=== PATIENT | female | born 1970 | race Caucasian/White ===

== ENCOUNTER 2016-06-28 11:23 | Day surgery (SDC) | payer BC ==
[2016-06-25 08:46] VITALS: BMI 38.7
[~2016-06-28 11:23] MED LIST: SODIUM CHLORIDE 0.9% 1,000 ML IV SCH
[2016-06-28 12:16] LABS: Anion Gap 14 mmol/L; Blood Urea Nitrogen 14 mg/dL (7-17); Calcium 9.1 mg/dL (8.4-10.2); Carbon Dioxide 17 mmol/L (22-30); Chloride 110 mmol/L (98-107); Glucose 97 mg/dL (74-99); Non-African American GFR(MDRD) >60 (>60 ml/min/1.73 sqM); Sodium 141 mmol/L (137-145)
[2016-06-28] MEDS ORDERED: MIDAZOLAM 2 MG/2 ML VIAL ONE ×2 (12:50→13:50)
[2016-06-28] MEDS ORDERED: MIDAZOLAM 2 MG/2 ML VIAL IV ONE (12:52)
[2016-06-28] MEDS ORDERED: PHENYLEPHRINE-0.9% NACL SYG 1 MG/10 ML SYRINGE ONE (13:50)
[2016-06-28] MEDS ORDERED: HEPARIN SODIUM 1,000 UNIT/ML VIAL ONE (13:50)
[2016-06-28] MEDS ORDERED: ISOPROTERENOL 250 MCG/1.25 ML SYR IV ONE (13:50)
[2016-06-28] MEDS ORDERED: fentaNYL (PF) 50 MCG/ML 2 ML AMP ONE (13:50)
[2016-06-28] MEDS ORDERED: PROPOFOL 10 MG/ML 20 ML VIAL IV ONE (13:50)
[2016-06-28] MEDS ORDERED: SUCCINYLCHOLINE CHLORIDE VIAL 200 MG/10 ML VIAL IV ONE (13:50)
[2016-06-28] MEDS ORDERED: ONDANSETRON 4 MG/2 ML VIAL ONE (13:50)
[2016-06-28] MEDS ORDERED: LIDOCAINE 2% INJ 20 MG/ML SQ ONE (15:01)
[2016-06-28] MEDS ORDERED: LACTATED RINGERS 1,000 ML IV ONE ×2 (15:09→17:46)
[2016-06-28] MEDS ORDERED: ACETAMINOPHEN TAB 325 MG TAB PO PRN (17:16)
[2016-06-28] MEDS ORDERED: PANTOPRAZOLE 40 MG TABLET PO PRN (17:17)
--- NOTE | 2016-06-28 18:19 | PCN ---
DATE OF PROCEDURE: 06/28/2016 Marcella Mckay is a 46-year-old female who has recurrent SVT. She has documented long RP tachycardia. She was brought in for a diagnostic EP study and radiofrequency ablation for symptomatic SVT. Patient was brought to the EP lab in a fasting state. Written informed consent was obtained prior to the procedure. The procedure was performed under general anesthesia because with conscious sedation she could not lie still on the table and was moving around a lot. Venous sheaths were then placed in the right and left femoral veins. There were 4 venous sheaths placed. Via these, diagnostic catheters were placed in the right heart: high right atrial catheter, His bundle catheter, RV catheter and coronary sinus catheter. Sinus cycle length 614 ms, ND interval 127 ms, QRS 95 ms, QT 430 ms. AH interval 119 ms. HV interval 31 ms. Sinus node recovery times at 600, 500 and 400 ms were 821, 853 and 860 ms, respectively. Corresponding corrected sinus node recovery times were within normal limits. AV node Wenckebach block 270 ms. Slow pathway was noted at 300 ms. During VA pacing to obtain a VA Wenckebach block, SVT was induced at a cycle length of 320 ms when pacing from the ventricle. The tachycardia cycle length was about 300 ms. During ventricular pacing a retrograde jump was noted. This was a long RP tachycardia, but the post-pacing interval minus tachycardia cycle length was 219 ms. A pseudo-VAAV response was noted with ventricular pacing, and this is consistent with atypical AV yue re-entry. A long sheath was placed and 4 mm-tip RF ablation catheter was placed. Three-D mapping was performed. The His cloud was mapped. The coronary sinus os, both at the floor and the roof, was mapped. RF ablation was performed posterior/inferiorly, but of the coronary sinus OFF. Slow pathway was mapped to the posterior septum but clearly off the coronary sinus os. RF ablation at this site resulted in the appearance of junctional rhythm. A lot of junctional rhythm was obtained and good temperature, good power were noted. Successful slow pathway ablation was performed. Ventricular pacing after RF ablation showed no evidence for AV yue re-entry and at the end no evidence for retrograde jump, either. However, with ventricular pacing, a second tachycardia was noted, and this appeared to be an atrial tachycardia with broad and negative V-shaped P-waves in the inferior leads and an initial negative followed by positive deflection in lead V1. This tachycardia was consistent with coronary sinus tachycardia. RF ablation at the coronary sinus roof resulted in induction of this tachycardia followed by termination. RF ablation was completed and 2 RF lesions were applied here. The tachycardia was rendered non-inducible with ventricular pacing. Isuprel was used and ventricular pacing, atrial pacing, coronary sinus pacing, and ventricular pacing were performed. Extrastimulation was performed from the atrium and from the RV. No SVT was induced. There was no evidence for slow pathway conduction. No evidence for atrial tachycardia. At the end, VA Wenckebach block was 280 ms and ( ) block was 340 ms. Patient tolerated the procedure well without any acute complications. All catheters were removed. Sheaths were removed. The patient was extubated and transferred to Telemetry. RESULT: Diagnostic EP study revealing two SVTs: 1. Atypical AV yue re-entry, status post successful ablation. 2. SVT 2 was in atrial tachycardia originating from the roof of the coronary sinus os. This was a distinct and a different tachycardia. RF ablation at the roof resulted in induction of the tachycardia followed by termination. Patient tolerated the procedure well without acute complications.
--- NOTE | 2016-06-28 18:23 | LTR ---
June 28, 2016 RE: Marcella Mckay Dear [place], I had the pleasure of seeing Marcella Mckay in electrophysiology followup. As you may remember, Marcella had recurrent episodes of SVT and she underwent diagnostic EP study which revealed: 1) AV yue re-entry, atypical; 2) an atrial tachycardia from the roof of the coronary sinus. There were 2 distinct tachycardias, and they were both successfully ablated and rendered non-inducible. Hopefully this takes care of her tachycardias. I plan to discontinue atenolol now and I will watch her blood pressure overnight and see if she needs any further maximization of antihypertensive therapy. Thank you for entrusting me with the care of your patient. Sincerely, CARLOS KOLB MD
[2016-06-28] MEDS ORDERED: HYDROcodone/APAP 5-325MG 1 EACH TAB PO PRN (22:16)
--- NOTE | 2016-06-29 08:20 | P.DS ---
Providers Attending physician: Kyree Holt Primary care physician: [place] Arthur Pertinent Studies: Patient is doing well from a cardiac standpoint. She has no chest discomfort she does have a mild cough and sore throat from general anesthesia no dizziness lightheadedness minimal groin pain no hematoma in the right groin or the left groin Blood pressure 144/60 mmHg, normal heart rates Heart sounds are normal normal S1 normal S2 no murmurs Breath sounds are normal no rhonchi no crackles Abdomen soft nontender No hematoma in the right or left groins Impression Atypical AV yue reentry Status post successful ablation Focal atrial tachycardia from the roof of the coronary sinus os Status post successful ablation Plan Discharge home today after 3 PM if no bleeding problems from the groins Stop atenolol and follow-up with Dr. Naqvi in 1 week Home blood pressure monitoring Discussed with patient and discussed with Dr. Naqvi Plan - Discharge Summary Discharge Medication List Atenolol [Tenormin] 25 mg PO QAM 02/13/15 [History] Norethindrone AC-Eth Estradiol [Junel 1 mg-20 Mcg Tablet] 1 tab PO DAILY [History] Atenolol 12.5 mg PO HS 03/03/15 [History] Ibuprofen [Motrin] 200 - 400 mg PO Q6HR PRN 04/22/16 [History] Omeprazole [PriLOSEC] 20 mg PO DAILY PRN 04/22/16 [History]
[2016-06-29 12:10] VITALS: BP 146/67; PULSE 83; RESP 16; TEMP 98.7
== END 2016-06-29 14:02 | disposition home or self-care (01) ==
LOC: CATHEP 11:23 → 3OBS 16:58 → CATHEP 06-29 14:02
PROVIDERS: ATTEND Internal Medicine Clinical Cardiac Electrophysiology
DX: I47.1 Supraventricular tachycardia (principal); E66.9 Obesity, unspecified; Z68.38 Body mass index [BMI] 38.0-38.9, adult; Z79.3 Long term (current) use of hormonal contraceptives; Z79.899 Other long term (current) drug therapy
CPT/HCPCS: 93623; 93613; 93653; 93655; 80048; 81025; C1894; C1769; C1893; C1732; C1730; J2001; J2250; J0330; J2405; J3010; J1644; J2370; J2704

== ENCOUNTER → 2017-01-10 | Outpatient (CLI) | payer BC ==
--- NOTE | 2017-01-12 09:56 | MM ---
Reason for exam: screening (asymptomatic). Last mammogram was performed 1 year ago. History: Patient had first child at age 32. Family history of breast cancer in paternal grandmother at age 70. Taking hormonal contraceptives for 7 years beginning at age 25. Physical Findings: A clinical breast exam by your physician is recommended on an annual basis and results should be correlated with mammographic findings. MG 3D Screening Mammo W/Cad Bilateral CC and MLO view(s) were taken. Prior study comparison: January 01, 2016, bilateral MG screening mammo w CAD. November 29, 2014, bilateral MG screening mammo w CAD. November 02, 2013, bilateral MG screening mammo w CAD. The breast tissue is heterogeneously dense. This may lower the sensitivity of mammography. Finding: Architectural distortion in seen in the central right breast at posterior depth, may represent overlap but further workup is recommended. ASSESSMENT: Incomplete: need additional imaging evaluation, BI-RAD 0 RECOMMENDATION: Special view mammogram of the right breast. If lesion persists on supplemental views, image directed ultrasound is recommended. [facility] will attempt to contact patient to return for supplemental views and ultrasound if indicated.
== END | disposition home or self-care (01) ==
LOC: RADMAMWWP 16:02
PROVIDERS: ATTEND Obstetrics & Gynecology
DX: Z12.31 Encounter for screening mammogram for malignant neoplasm of breast (principal)
CPT/HCPCS: 77063; G0202

== ENCOUNTER → 2017-01-13 | Outpatient (CLI) | payer BC ==
--- NOTE | 2017-01-13 09:28 | MM ---
Reason for exam: additional evaluation requested from abnormal screening. Last mammogram was performed less than 1 month ago. History: Patient had first child at age 32. Family history of breast cancer in paternal grandmother at age 70. Taking hormonal contraceptives for 7 years beginning at age 25. Physical Findings: Nurse did not find any significant physical abnormalities on exam. MG 3D Work Up W/Cad RT LM and spot compression CC view(s) were taken of the right breast. Prior study comparison: January 10, 2017, bilateral MG 3d screening mammo w/cad. January 01, 2016, bilateral MG screening mammo w CAD. November 29, 2014, bilateral MG screening mammo w CAD. The breast tissue is heterogeneously dense. This may lower the sensitivity of mammography. Distortion posterior depth persists. These results were verbally communicated with the patient and result sheet given to the patient on 01/13/17. ASSESSMENT: Incomplete: need additional imaging evaluation, BI-RAD 0 RECOMMENDATION: Ultrasound of the right breast. (6-12 o'clock)
--- NOTE | 2017-01-13 09:30 | USB ---
Reason for exam: additional evaluation requested from abnormal screening. History: Patient had first child at age 32. Family history of breast cancer in paternal grandmother at age 70. Taking hormonal contraceptives for 7 years beginning at age 25. US Breast Workup Limited RT Right breast ultrasound demonstrates a 1.1 x 1.1 x 0.8cm node at the axilla. No cystic or solid mass. No suspicious abnormalities. These results were verbally communicated with the patient and result sheet given to the patient on 01/13/17. ASSESSMENT: Probably benign, BI-RAD 3 RECOMMENDATION: Follow-up diagnostic mammogram of the right breast in 6 months.
== END | disposition home or self-care (01) ==
LOC: RADMAMWWP 07:38
PROVIDERS: ATTEND Obstetrics & Gynecology
DX: R92.8 Other abnormal and inconclusive findings on diagnostic imaging of breast (principal)
CPT/HCPCS: 76642; G0206; G0279

== ENCOUNTER → 2017-08-16 | Outpatient (CLI) | payer BC ==
--- NOTE | 2017-08-16 09:32 | MM ---
Reason for exam: follow-up at short interval from prior study. Last mammogram was performed 7 months ago. History: Patient had first child at age 32. Family history of breast cancer in paternal grandmother at age 70. Taking hormonal contraceptives beginning at age 25. Physical Findings: Nurse did not find any significant physical abnormalities on exam. MG Diagnostic Mammo RT w CAD CC and MLO view(s) were taken of the right breast. Prior study comparison: January 13, 2017, right breast MG 3d work up w/cad RT. January 13, 2017, right breast US breast workup limited RT. January 10, 2017, bilateral MG 3d screening mammo w/cad. January 01, 2016, bilateral MG screening mammo w CAD. November 29, 2014, bilateral MG screening mammo w CAD. The breast tissue is heterogeneously dense. This may lower the sensitivity of mammography. No suspicious abnormality. The previously seen distortion likely representing overlap is not seen on today's exam. No new suspicious abnormalities. Precautionary continued 6 month follow up recommended. These results were verbally communicated with the patient and result sheet given to the patient on 08/16/17. ASSESSMENT: Probably benign, BI-RAD 3 RECOMMENDATION: Follow-up diagnostic mammogram of both breasts in 6 months. Back on schedule.
== END | disposition home or self-care (01) ==
LOC: RADMAMWWP 08:07
PROVIDERS: ATTEND Obstetrics & Gynecology
DX: R92.8 Other abnormal and inconclusive findings on diagnostic imaging of breast (principal)
CPT/HCPCS: 77065

== ENCOUNTER → 2018-03-03 | Outpatient (CLI) | payer BC ==
--- NOTE | 2018-03-03 09:35 | MM ---
Reason for exam: additional evaluation requested from prior study. Last mammogram was performed 7 months ago. History: Patient had first child at age 32. Family history of breast cancer in paternal grandmother at age 70. Taking hormonal contraceptives beginning at age 25. Physical Findings: Nurse did not find any significant physical abnormalities on exam. MG 3D Diag Mammo W/Cad JAMES Bilateral CC and MLO view(s) were taken. Prior study comparison: August 16, 2017, right breast MG diagnostic mammo RT w CAD. January 13, 2017, right breast MG 3d work up w/cad RT. The breast tissue is heterogeneously dense. This may lower the sensitivity of mammography. The previously seen upper central distortion improves on spot view and is stable within dense tissue with no sonographic abnormality on prior. These results were verbally communicated with the patient and result sheet given to the patient on 03/03/18. ASSESSMENT: Probably benign, BI-RAD 3 RECOMMENDATION: Follow-up diagnostic mammogram of both breasts in 1 year.
== END | disposition home or self-care (01) ==
LOC: RADMAMWWP 08:13
PROVIDERS: ATTEND Obstetrics & Gynecology
DX: R92.8 Other abnormal and inconclusive findings on diagnostic imaging of breast (principal)
CPT/HCPCS: 77062; 77066

== ENCOUNTER → 2019-03-12 | Outpatient (CLI) | payer BC ==
--- NOTE | 2019-03-12 08:14 | MM ---
Reason for exam: additional evaluation requested from prior study. Last mammogram was performed 1 year ago. History: Patient had first child at age 32. Family history of breast cancer in paternal grandmother at age 70. Taking hormonal contraceptives beginning at age 25. Physical Findings: Nurse did not find any significant physical abnormalities on exam. MG 3D Diag Mammo W/Cad JAMES Bilateral CC and MLO view(s) were taken. Prior study comparison: March 03, 2018, bilateral MG 3d diag mammo w/cad JAMES. August 16, 2017, right breast MG diagnostic mammo RT w CAD. The breast tissue is heterogeneously dense. This may lower the sensitivity of mammography. No significant new findings when compared with previous films. These results were verbally communicated with the patient and result sheet given to the patient on 03/12/19. ASSESSMENT: Benign, BI-RAD 2 RECOMMENDATION: Routine screening mammogram of both breasts in 1 year.
== END | disposition home or self-care (01) ==
LOC: RADMAMWWP 07:02
PROVIDERS: ATTEND Obstetrics & Gynecology
DX: R92.8 Other abnormal and inconclusive findings on diagnostic imaging of breast (principal)
CPT/HCPCS: 77062; 77066

== ENCOUNTER → 2020-04-16 | Outpatient (CLI) | payer BC ==
--- NOTE | 2020-04-18 10:41 | MM ---
Reason for exam: screening (asymptomatic). Last mammogram was performed 1 year and 1 month ago. History: Patient is postmenopausal and had first child at age 32. Family history of breast cancer in paternal grandmother at age 70. Taking hormonal contraceptives beginning at age 25. Physical Findings: A clinical breast exam by your physician is recommended on an annual basis and results should be correlated with mammographic findings. MG 3D Screening Mammo W/Cad Bilateral CC and MLO view(s) were taken. Prior study comparison: March 12, 2019, bilateral MG 3d diag mammo w/cad JAMES. March 03, 2018, bilateral MG 3d diag mammo w/cad JAMES. The breast tissue is heterogeneously dense. This may lower the sensitivity of mammography. No significant changes when compared with prior studies. ASSESSMENT: Negative, BI-RAD 1 RECOMMENDATION: Routine screening mammogram of both breasts in 1 year.
== END | disposition home or self-care (01) ==
LOC: RADMAMWWP 16:21
PROVIDERS: ATTEND Family Medicine
DX: Z12.31 Encounter for screening mammogram for malignant neoplasm of breast (principal)
CPT/HCPCS: 77063; 77067

== ENCOUNTER → 2021-05-07 | Outpatient (CLI) | payer BC ==
--- NOTE | 2021-05-11 13:56 | MM ---
Reason for exam: screening (asymptomatic). Last mammogram was performed 1 year and 1 month ago. History: Patient is postmenopausal and had first child at age 32. Family history of breast cancer in paternal grandmother at age 70. Taking hormonal contraceptives for 25 years beginning at age 25. Physical Findings: A clinical breast exam by your physician is recommended on an annual basis and results should be correlated with mammographic findings. MG 3D Screening Mammo W/Cad Bilateral CC and MLO view(s) were taken. Prior study comparison: April 16, 2020, bilateral MG 3d screening mammo w/cad. March 12, 2019, bilateral MG 3d diag mammo w/cad JAMES. The breast tissue is heterogeneously dense. This may lower the sensitivity of mammography. There is no discrete abnormality. ASSESSMENT: Negative, BI-RAD 1 RECOMMENDATION: Routine screening mammogram of both breasts in 1 year.
== END | disposition home or self-care (01) ==
LOC: RADMAMWWP 10:38
PROVIDERS: ATTEND Obstetrics & Gynecology
DX: Z12.31 Encounter for screening mammogram for malignant neoplasm of breast (principal); Z80.3 Family history of malignant neoplasm of breast; Z78.0 Asymptomatic menopausal state
CPT/HCPCS: 77063; 77067

== ENCOUNTER → 2021-08-05 | Outpatient (CLI) | payer BC ==
[2021-08-05 10:26] LABS: African American GFR (CKD) 79.6 (60.0-200.0); BUN/Creat Ratio 10.75 Ratio (12.00-20.00); Blood Urea Nitrogen 10.3 mg/dL (9.0-27.0); Calcium 9.4 mg/dL (8.7-10.3); Carbon Dioxide 20.2 mmol/L (20.0-27.5); Chloride 108 mmol/L (96-109); Chol/HDL Ratio 4.72 Ratio; Glucose 108 mg/dL (70-110); LDL Cholesterol,Calculated 137.5 mg/dL (0.0-131.0); Non-African American GFR(CKD) 68.7 (60.0-200.0); Potassium 4.5 mmol/L (3.5-5.5); Sodium 141 mmol/L (135-145)
== END | disposition home or self-care (01) ==
LOC: LABWHC1 07:04
PROVIDERS: ATTEND Nurse Practitioner Family
DX: Z00.00 Encounter for general adult medical examination without abnormal findings (principal); E78.00 Pure hypercholesterolemia, unspecified; R73.01 Impaired fasting glucose
CPT/HCPCS: 36415; 80048; 80061; 83036

== ENCOUNTER → 2021-08-05 | Outpatient (CLI) | payer BC ==
--- NOTE | 2021-08-05 09:11 | XR ---
EXAMINATION TYPE: XR knee 4V LT DATE OF EXAM: 08/05/2021 COMPARISON: NONE HISTORY: Pain TECHNIQUE: Three views are submitted. FINDINGS: Joint spaces are preserved. Osseous structures are intact. No acute fracture seen. Mild hypertrophi c spurring of the upper margin of the patella. IMPRESSION: 1. Mild hypertrophic change.
== END | disposition home or self-care (01) ==
LOC: RADXRMAIN 07:16
PROVIDERS: ATTEND Nurse Practitioner Family
DX: M25.862 Other specified joint disorders, left knee (principal)

== ENCOUNTER → 2021-11-04 | Outpatient (CLI) | payer BC ==
[~2021-11-04] MED LIST changes: +IODINE/POTASS IOD (LUGOLS) BOTTLE ONE; -SODIUM CHLORIDE 0.9% 1,000 ML IV SCH
--- NOTE | 2021-11-05 08:22 | NM ---
EXAMINATION TYPE: NM DatScan Brain SPECT DATE OF EXAM: 11/04/2021 COMPARISON: NONE HISTORY: Tremor TECHNIQUE: 10 drops of Lugol's solution was administered 1 hour prior to injection as a thyroid bloc raven agent. After the administration of 4.56 mCi I-123 Ioflupane DaTscan. Images obtained 3 hours p ost injection. SPECT images of the brain were acquired with axial and coronal reconstructions. FINDINGS: The axial SPECT images demonstrate normal background activity. Accounting for head tilt, t here appears to be slight asymmetrically blunted comma-shaped appearance of the right corpus striatum . IMPRESSION: Slightly blunted striatal activity on the left may indicate early changes of idiopathic P arkinson's disease or Parkinsonian syndrome.
== END | disposition home or self-care (01) ==
LOC: RADNMMAIN 10:33
PROVIDERS: ATTEND Psychiatry & Neurology Neurology
DX: G20 Parkinson's disease (principal)
CPT/HCPCS: 78803; A9584

== ENCOUNTER → 2022-03-30 | Outpatient (CLI) | payer BC ==
--- NOTE | 2022-03-30 11:27 | FL ---
EXAMINATION TYPE: FL barium swallow w video DATE OF EXAM: 03/30/2022 MODIFIED SWALLOW / DEGLUTITION STUDY CLINICAL HISTORY: Dysphagia. Rule out aspiration. History of Parkinson's syndrome. TECHNIQUE: Deglutition study is performed utilizing thin liquid barium, honey and nectar thick liqui d barium, barium thick applesauce, and barium coated cracker. 35 seconds of fluoro time and 0 images obtained. COMPARISON: None. FINDINGS: The oral and pharyngeal phases show satisfactory initiation and propagation with all modali ties tested. Satisfactory mastication is seen with solid modalities tested. There is no evidence of penetration or aspiration with any modality tested. No significant pharyngeal residue was appreciate d. IMPRESSION: No aspiration observed. Please refer to speech therapist notes for further details if ne cessary.
== END | disposition home or self-care (01) ==
LOC: RADFLMAIN 10:26
PROVIDERS: ATTEND Psychiatry & Neurology Neurology
DX: R13.10 Dysphagia, unspecified (principal); G20 Parkinson's disease
CPT/HCPCS: 74230

== ENCOUNTER → 2022-08-20 | Outpatient (CLI) | payer BC ==
[2022-08-20 15:33] LABS: ALT 31 U/L (8-44); AST 14 U/L (13-35); African American GFR (CKD) 80.6 (60.0-200.0); Albumin 4.2 g/dL (3.8-4.9); Albumin/Globulin Ratio 1.36 (1.60-3.17); Alkaline Phosphatase 72 U/L (41-126); BUN/Creat Ratio 18.15 Ratio (12.00-20.00); Blood Urea Nitrogen 17.1 mg/dL (9.0-27.0); Calcium 9.7 mg/dL (8.7-10.3); Carbon Dioxide 23.4 mmol/L (20.0-27.5); Chloride 105 mmol/L (96-109); Chol/HDL Ratio 4.78 Ratio; Globulin 3.1 g/dL (1.6-3.3); Glucose 117 mg/dL (70-110); LDL Cholesterol,Calculated 140.9 mg/dL (0.0-131.0); Non-African American GFR(CKD) 69.6 (60.0-200.0); Potassium 4.1 mmol/L (3.5-5.5); Sodium 139 mmol/L (135-145); Total Protein 7.3 g/dL (6.2-8.2)
== END | disposition home or self-care (01) ==
LOC: LABWHC1 10:21
PROVIDERS: ATTEND Nurse Practitioner Family
DX: Z00.00 Encounter for general adult medical examination without abnormal findings (principal); E78.00 Pure hypercholesterolemia, unspecified; R73.01 Impaired fasting glucose
CPT/HCPCS: 36415; 80053; 80061; 83036

== ENCOUNTER → 2023-01-07 | Outpatient (CLI) | payer BC ==
--- NOTE | 2023-01-10 12:06 | MM ---
EXAM: MG 3D diag mammo w/cad LT DATE OF EXAM: 01/07/2023 2:17 PM COMPARISON STUDIES: 04/16/2020 Bilateral Screening Mammogram, [facility]. 05/07/2021 Bilateral Screening Mammogram, [facility]. 06/25/2022 Bilateral MG 3D screening mammo w/cad, [facility]. 07/01/2022 Left MG 3D work up w/cad LT, [facility]. PATIENT HISTORY:Female, 52 years old with history of R92.8 OTH ABN AND INCONCLUSIVE FINDINGS ON DX IMAG; , Menarche at age 12. First Full-Term at age 32. Late child-bearing (after 30). Postmenopausal. Patient has history of breast feeding. Currently using Hormonal Contraceptives, beginning at age 25 for 25 years. Paternal grandmother had breast cancer, age 70. , RISK CALCULATION: Beeb 5 year model risk: 1.5%. NCI Lifetime model risk: 11.8%. TISSUE DENSITY: Heterogeneously dense FINDINGS: Stable fibroglandular tissue in the left breast. No new suspicious masses, calcifications or distortions. ASSESSMENT: 2 - Benign RECOMMENDATION: 1. Screening Mammogram Bilateral in 6 Months . COMMENTS: Results were given to the patient verbally at the time of exam. Patient should continue monthly self-breast exams. A clinical breast exam by your physician is recommended on an annual basis. This exam should not preclude additional follow-up of suspicious palpable abnormalities. Note on Bebe scores and lifetime risk: 1. A Bebe score greater than 3% is considered moderate risk. If this is the case, consider specialist referral to assess eligibility for a risk reducing agent. 2. If overall lifetime risk for the development of breast cancer is 20% or higher, the patient may qualify for future screening with alternating mammogram and breast MRI. ERENDIRA
== END | disposition home or self-care (01) ==
LOC: RADMAMWWP 13:57
PROVIDERS: ATTEND Obstetrics & Gynecology
DX: R92.8 Other abnormal and inconclusive findings on diagnostic imaging of breast (principal); Z78.0 Asymptomatic menopausal state; Z80.3 Family history of malignant neoplasm of breast
CPT/HCPCS: 77061; 77065

== ENCOUNTER → 2024-03-30 | Outpatient (CLI) | payer BC ==
[2024-03-31 02:44] LABS: Estradiol 28.5 pg/mL; Testosterone 47.1 ng/dL (7.00-45.62)
== END | disposition home or self-care (01) ==
LOC: LABWHC1 15:42
PROVIDERS: ATTEND Obstetrics & Gynecology
DX: N95.1 Menopausal and female climacteric states (principal); R53.83 Other fatigue
CPT/HCPCS: 36415; 82670; 83001; 84144; 84403